=== PATIENT | female | born 1970 | race Caucasian/White ===

== ENCOUNTER 2017-09-25 13:00 | Emergency (ER) | payer OTHER ==
[~2017-09-25] VITALS: Ht 162.6 cm; Wt 70.3 kg
[2017-09-25 14:13] LABS: ABSOLUTE BASOPHIL COUNT 0 /CUMM (0.0-0.2); ABSOLUTE EOSINOPHIL COUNT 0 /CUMM (0.0-0.7); ABSOLUTE GRANULOCYTE CT 10.1 /CUMM (1.4-6.5); ABSOLUTE LYMPH COUNT 0.7 /CUMM (1.2-3.4); ABSOLUTE MONOCYTE COUNT 0.4 /CUMM (0.10-0.60); BASOPHIL % 0 % (0.0-2.0); EOSINOPHIL % 0.3 % (0-5); GRANULOCYTE % 90.6 % (42.2-75.2); HEMATOCRIT 44.6 % (37-47); MEAN CORPUSCULAR HGB 30.2 PG (27.0-31.0); MEAN CORPUSCULAR HGB CONC 33.9 G/DL (33.0-37.0); MEAN CORPUSCULAR VOLUME 89.1 FL (81.0-99.0); MEAN PLATELET VOLUME 9.7 FL (7.4-10.4); PLATELET COUNT 213 /CUMM (130-400); RBC DISTRIBUTION WIDTH 13.1 % (11.5-14.5); RED BLOOD CELL CT 5.01 /CUMM (4.20-5.40); WHITE BLOOD CELL COUNT 11.1 /CUMM (4.8-10.8)
--- NOTE | 2017-09-25 15:23 | ED GI/GU/ABDOMINAL COMPLAINT ---
History of Present Illness General Chief Complaint: Abdominal Pain/Flank Pain Stated Complaint: ABD PAIN Source: patient, old records Exam Limitations: no limitations Vital Signs & Intake/Output Vital Signs & Intake/Output ED Intake and Output 09/26 0000 09/25 1200 Intake Total 1000 Output Total Balance 1000 Intake, IV 1000 Patient 155 lb Weight Weight Reported by Patient Measurement Method Allergies Uncoded Allergies: ANTIBIOTICS PER PT (Severe, "BAD STOMACH" PER PT 09/25/17) Reconcile Medications Ondansetron (Zofran Odt) 4 MG TAB.RAPDIS 1 TAB SL TID PRN nausea Pantoprazole Sodium (Protonix) 40 MG TABLET.DR 1 TAB PO DAILY gastritis Triage Note: 47 Y/O FEMALE C/O PAIN SINCE APPROX 3PM LAST NIGHT. STATES SHE HAS BEEN VOMITING UNTIL 0900 AM TODAY. LAST BM YESTERDAY AND "NORMAL" PER PT. DENIES DIARRHEA TODAY. REPORTS INTERMITTENT ABDOMINAL "SPASMS". STATES SHE HAS HAD FOOD POISONING IN THE PAST BUT THIS FEELS "DIFFERENT". DENIES FEVERS - "I FEEL COLD". AFEBRILE. Triage Nurses Notes Reviewed? yes ? n Is pt currently ? No Onset: Abrupt Duration: hour(s): (12), better, intermittent, waxing and waning Timing: recent history Quality/Severity: aching, cramping, moderate Severity Numbers: 6 Location: epigastric Radiation: no radiation Activities at Onset: sleep Prior Abdominal Problems: none No Modifying Factors: none Associated Symptoms: denies HPI: 47-year-old female history of hypothyroid presents to ER for evaluation complaining of epigastric abdominal pain described as a squeezing sensation coming and going intermittently in waves since 3:00 in the morning associated with nausea vomiting. She denies diarrhea. No hematemesis. Last time she vomited was at 9:00 this morning. No sick contacts. No chest pain. She is not taken anything for her symptoms she now describes it as a spasming and gurgling sensation. No fevers urinary complaints no history of abdominal surgeries in the past (Kinsey MATSON,Hank) Past History Travel History Traveled to [place] past 21 day No Medical History Any Pertinent Medical History? 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 No (Hank Putnam) Review of Systems Review of Systems Constitutional: Reports: see HPI. Comments Review of systems: See HPI, All other systems negative. Constitutional, no chills no fever, HEENT: no sore throat no congestion Cardiovascular: No chest pain , no palpitation Skin: no rashes, no change in skin Respiratory: No dyspnea no cough GI: SEE HPI : No dysuria No hematuria, no frequency Muscle skeletal: No joint pain, no back pain Neurologic: , no headache Heme/endocrine: No bruising Immunology: No lymphadenopathy (Hank Putnam) Physical Exam Physical Exam General Appearance: well developed/nourished, alert, awake Gastrointestinal: soft Comments: Well-developed well-nourished person in no acute distress HEENT: Normal EENT exam; PERRL, EOMI,HEAD is atraumatic. moist mucous membranes. Neck: Supple, normal range of motion Back: Nontender, no CVA tenderness. Full range of motion Cardiovascular: Regular rate and rhythms no murmurs rubs or gallops, normal JVP Respiratory: Chest nontender.There were no bony deformities, no asymmetry. No respiratory distress. Patient speaking in full complete sentences. Breath sounds clear to auscultation bilaterally: NO W/R/R Abdomen: Soft, mild epigastric tenderness, no ruq tenderness, negative Quevedo's nondistended, no appreciable organomegaly. Normal bowel sounds. No rebound/ guarding, Extremity: No edema, full range of motion of extremities Neuro: Alert oriented x3, motor sensory normal. There were no obvious focal neurologic abnormalities. Skin: No appreciable rash on exposed skin, skin is warm and dry. No jaundice no diaphoresis Psych: Mood and affect is normal, memory and judgment is normal. Core Measures ACS in differential dx? No Sepsis Present: No Sepsis Focused Exam Completed? No (Hank Putnam) Progress Differential Diagnosis: appendicitis, biliary colic, bowel obstruction, colon cancer, cholecystitis, ectopic , gastritis, hepatitis, hernia, inflamm bowel dis, intrauterine , pancreatitis, peptic ulcer, PUD/GERD, perforated viscous, SBO Plan of Care: Orders Procedure Date/time Status Add-on Test (ER Only) 09/25 1438 Active HUMAN BETA HCG TITRE 09/25 1353 Complete URINE 09/25 1312 Complete URINALYSIS 09/25 131 Complete LIPASE 09/25 131 Complete COMPREHENSIVE METABOLIC PANEL 09/26 1311 Complete CBC WITHOUT DIFFERENTIAL 09/26 1311 Complete Laboratory Tests 09/25/17 1500: Urine Color YEL, Urine Clarity CLEAR, Urine pH 6.5, Ur Specific [place] 1.020, Urine Protein 30 H, Urine Ketones 15 H, Urine Nitrite NEG, Urine Bilirubin NEG , Urine Urobilinogen 0.2, Ur Leukocyte Esterase NEG, Ur Microscopic SEDIMENT EXAMINED, Urine RBC 15-25 H, Urine WBC RARE, Ur Epithelial Cells RARE, Urine Bacteria FEW H, Urine Mucus RARE, Urine Hemoglobin LARGE H, Urine Glucose NEG, Urine Test NEGATIVE 09/25/17 1353: Anion Gap 14, Estimated GFR > 60, BUN/Creatinine Ratio 21.4, Glucose 95, Calcium 9.4, Total Bilirubin 1.2, AST 27, ALT 34, Alkaline Phosphatase 85, Total Protein 8.1, Albumin 4.8, Globulin 3.3, Albumin/Globulin Ratio 1.5, Lipase 63, Beta HCG, Quant < 2.4, CBC w Diff NO MAN DIFF REQ, RBC 5.01, MCV 89.1, MCH 30.2, MCHC 33.9 , RDW 13.1, MPV 9.7, Gran % 90.6 H, Lymphocytes % 5.9 L, Monocytes % 3.2, Eosinophils % 0.3, Basophils % 0, Absolute Granulocytes 10.1 H, Absolute Lymphocytes 0.7 L, Absolute Monocytes 0.4, Absolute Eosinophils 0, Absolute Basophils 0 Patient declining Toradol or any other pain medication she is in agreement for Pepcid Zofran and fluids. Labs ordered from triage which I reviewed with the patient her results she is declining CAT scan at this time, old records reviewed on repeat evaluation patient reports nausea improved still hasn't thing intermittent spasms to her epigastric region I again discussed with her plan offering CAT scan which she is refusing 1740 On repeat evaluation patient is feeling better she ate a harish cracker had some water again she is declining CAT scan and discussed with the plan of care she'll follow up with Dr. Kat tomorrow, I discussed with her return precautions if her symptoms come back or worsen to return to ER I discussed with her at that time she will need a CAT scan there is no right upper quadrant tenderness negative Quevedo's sign there is no lower quadrant abdominal pain Initial ED EKG: none (Hank Putnam) Departure Departure Time of Disposition: 1736 Disposition: HOME OR SELF CARE Condition: Stable Clinical Impression Primary Impression: Nausea & vomiting Referrals: Zhang [facility],Zenon Wen (PCP/Family) Additional Instructions: follow up with dr kat tomorrow. zofran for nausea- this was sent to [facility]. bland diet, clear liquids. protonix as directed. this was sent to [facility]. return if your symptoms worsen or you have any other concerns Departure Forms: Customer Survey General Discharge Information Prescriptions: Current Visit Scripts Ondansetron (Zofran Odt) 1 TAB SL TID PRN nausea #10 TAB Pantoprazole Sodium (Protonix) 1 TAB PO DAILY #14 TAB (Hank uPtnam) PA/TRIAL JUDGE Co-Sign Statement Statement: ED Attending supervision documentation- [] I saw and evaluated the patient. I have also reviewed all the pertinent lab results and diagnostic results. I agree with the findings and the plan of care as documented in the PA's/TRIAL JUDGE's documentation. [X] I have reviewed the ED Record and agree with the PA's/TRIAL JUDGE's documentation. [] Additions or exceptions (if any) to the PAs/TRIAL JUDGE's note and plan are summarized below: [] (Odilia CARL,Yayo Sol)
[2017-09-25 16:06] VITALS: BP 114/78
[2017-09-25] MEDS ORDERED: ZOFRAN ODT4 M1 SL (17:38)
[2017-09-25] MEDS ORDERED: PROTONIX40 M3 PO (17:39)
== END 2017-09-25 17:46 ==
LOC: ERH 13:00
PROVIDERS: Physician Assistant Medical
DX: R11.2 Nausea with vomiting, unspecified (principal)
CPT/HCPCS: 81001; 81025; 96374; 96375; J2405